=== PATIENT | female | born 1960 | race African-American/Black ===

== ENCOUNTER 2022-09-19 15:27 | Inpatient (IN) | payer MEDICARE, MEDICAID ==
[~2022-09-19] VITALS: Ht 165.1 cm; Wt 111.6 kg
[2022-09-19 17:10] LABS: EOSINOPHILS % 1.4 % (0.0-5.0); HEMATOCRIT. 39.7 % (36.0-48.0); HEMOGLOBIN. 13.1 g/dL (12.0-16.0); LYMPHOCYTES % 36.6 % (20.0-50.0); MEAN CORPUSCULAR HEMOGLOBIN 29.8 pg (28.0-32.0); MEAN CORPUSCULAR VOLUME 90.3 fL (81.0-99.0); MEAN PLATELET VOLUME 10.4 fl (7.4-10.4); MONOCYTES % 8.1 % (2.0-8.0); NEUTROPHILS % 52.9 % (40.0-76.0); PLATELET 185 x1000/uL (130-400); RED BLOOD CELL COUNT 4.39 mill/uL (4.2-5.4); RED CELL DISTRIBUTION WIDTH 14.8 % (11.6-14.6)
[2022-09-19 17:18] LABS: CHLORIDE 110 mEq/L (98-107)
[2022-09-19 17:32] LABS: ETHANOL BLOOD < 10 mg/dL
[2022-09-19] MEDS ORDERED: ASPIRIN 325MG EC TABLET PO ONE (18:00)
[2022-09-19 18:47] LABS: PARTIAL THROMBOPLASTIN TIME < 21.0 sec (23.4-31.0); PROTHROMBIN TIME 10.7 sec (9.6-11.0)
[2022-09-19 18:51] LABS: *AMPHETAMINES SCREEN URINE NEGATIVE (NEGATIVE); *BARBITURATES SCREEN URINE NEGATIVE (NEGATIVE); *BENZODIAZEPINES SCREEN URINE NEGATIVE (NEGATIVE); *COCAINE SCREEN URINE NEGATIVE (NEGATIVE); CANNABINOID URINE SCREEN NEGATIVE (NEGATIVE); METHADONE URINE SCREEN NEGATIVE (NEGATIVE); OPIATES URINE SCREEN NEGATIVE (NEGATIVE); PHENCYCLIDINE URINE SCREEN NEGATIVE (NEGATIVE)
[2022-09-19] MEDS ORDERED: IPRATROPIUM/ALBUTEROL 0.5-3(2.5)MG/3ML NEB HHN PRN (23:00)
[2022-09-19] MEDS ORDERED: GUAIFENESIN 200MG/10ML SUGAR FREE UDC PO PRN (23:00)
[2022-09-19] MEDS ORDERED: ONDANSETRON HCL 4MG/2ML INJ IV PRN (23:00)
[2022-09-19] MEDS ORDERED: MAGNESIUM/ALUMINUM HYDROXIDE/SIMETHICONE 30ML UDC PO PRN (23:00)
[2022-09-19] MEDS ORDERED: ACETAMINOPHEN 325MG TABLET PO PRN ×2 (23:00)
[2022-09-19] MEDS ORDERED: CLONIDINE 0.1MG TABLET PO PRN (23:00)
[2022-09-19] MEDS ORDERED: DOCUSATE SODIUM 100MG CAPSULE PO PRN (23:00)
[2022-09-19] MEDS ORDERED: IPRATROPIUM BROMIDE (0.02%) 0.5MG/2.5ML NEB HHN PRN (23:30)
[2022-09-19] MEDS ORDERED: ALBUTEROL (0.083%) 2.5MG/3ML NEB HHN PRN (23:30)
[2022-09-20 04:50] VITALS: BP 141/89
[2022-09-20 04:52] VITALS: BP 141/89
[2022-09-20 08:00] VITALS: BP 158/71
[2022-09-20] MEDS ORDERED: LIDOCAINE HCL 1% 10 MG/ML 10ML VIAL ONE (09:02)
[2022-09-20] MEDS ORDERED: IOHEXOL-350 100 ML BOTTLE ONE (09:59)
[2022-09-20 12:00] VITALS: BP 172/62
[2022-09-20] MEDS: ASPIRIN 81MG EC TABLET PO SCH (13:41)
[2022-09-20] MEDS: FUROSEMIDE 40MG/4ML VIAL IV SCH (13:41)
[2022-09-20] MEDS: AMLODIPINE 5MG TABLET PO SCH (13:41)
[2022-09-20] MEDS: CLOPIDOGREL 75MG TABLET PO SCH (13:41)
[2022-09-20] MEDS: ENOXAPARIN 30MG/0.3ML SYR SUBCUT SCH ×2 (14:25→22:19)
[2022-09-20] MEDS: FAMOTIDINE 20MG/2ML VIAL IV SCH (14:25)
[2022-09-20 16:00] VITALS: BP 143/94
[2022-09-20] MEDS ORDERED: DEXTROSE 50% WATER 50ML SYRINGE IV PRN (18:45)
[2022-09-20 20:00] VITALS: BP 125/84
[2022-09-20] MEDS: BLOOD SUGAR DIAGNOSTIC STRIP TEST SCH (21:00)
[2022-09-20] MEDS: INSULIN LISPRO 100 UNITS/ML SUBCUT SCH (21:00)
[2022-09-20 21:20] LABS: BASOPHILS % 0.8 % (0.0-2.0); EOSINOPHILS % 2.3 % (0.0-5.0); HEMOGLOBIN. 13.2 g/dL (12.0-16.0); LYMPHOCYTES % 30.5 % (20.0-50.0); MEAN CORPUSCULAR HEMOGLOBIN 30.3 pg (28.0-32.0); MEAN CORPUSCULAR VOLUME 89.8 fL (81.0-99.0); MEAN PLATELET VOLUME 9.9 fl (7.4-10.4); NEUTROPHILS % 57.4 % (40.0-76.0); PLATELET 184 x1000/uL (130-400); RED BLOOD CELL COUNT 4.34 mill/uL (4.2-5.4)
[2022-09-20 21:46] LABS: CHLORIDE 107 mEq/L (98-107)
[2022-09-20 22:00] LABS: HDL CHOLESTEROL 66 mg/dL (40-59); LDL CHOLESTEROL 106 mg/dL (5-100); T4 FREE 0.91 ng/dL (0.76-1.46)
[2022-09-20] MEDS: ATORVASTATIN CALCIUM 40MG TABLET PO SCH (22:19)
[2022-09-21] VITALS (8 sets, daily range): BP systolic 113–145; BP diastolic 38–89
[2022-09-21] MEDS: BLOOD SUGAR DIAGNOSTIC STRIP TEST SCH ×4 (06:08→20:37)
[2022-09-21] MEDS: INSULIN LISPRO 100 UNITS/ML SUBCUT SCH ×4 (06:35→20:41)
[2022-09-21] MEDS: CLOPIDOGREL 75MG TABLET PO SCH (07:56)
[2022-09-21] MEDS: ASPIRIN 81MG EC TABLET PO SCH (07:56)
[2022-09-21] MEDS: AMLODIPINE 5MG TABLET PO SCH (07:56)
[2022-09-21] MEDS: FUROSEMIDE 40MG/4ML VIAL IV SCH (07:56)
[2022-09-21] MEDS: ENOXAPARIN 30MG/0.3ML SYR SUBCUT SCH ×2 (07:57→20:51)
[2022-09-21] MEDS: FAMOTIDINE 20MG/2ML VIAL IV SCH (07:57)
[2022-09-21] MEDS ORDERED: SPIRONOLACTONE 25MG TABLET PO SCH (15:30)
[2022-09-21] MEDS ORDERED: LOSARTAN POTASSIUM 25 MG TABLET PO NR (15:30)
[2022-09-21] MEDS: ATORVASTATIN CALCIUM 40MG TABLET PO SCH (20:51)
[2022-09-21] MEDS ORDERED: ONDANSETRON HCL 4MG TABLET PO PRN (22:30)
[2022-09-22] MEDS ORDERED: FAMOTIDINE 20MG TABLET PO SCH (09:00)
[2022-09-22] MEDS ORDERED: FUROSEMIDE 40MG TABLET PO SCH (09:00)
== END 2022-09-21 23:25 | DRG 64 ==
LOC: ER 15:37 → MICUSO 19:42 → EDBEDREQ 19:48 → EDBEDREQTM 19:48 → 3WST 09-20 04:51 → 4WST 09-21 23:30 → 3WST 09-21 23:30
PROVIDERS: ADMIT Hospitalist; ATTEND Hospitalist
PROC: 02HV33Z Insertion of Infusion Device into Superior Vena Cava, Percutaneous Approach (ICD-10-PCS; 2022-09-20)
PROC: B5181ZA Fluoroscopy of Superior Vena Cava using Low Osmolar Contrast, Guidance (ICD-10-PCS; 2022-09-20)
PROC: B548ZZA Ultrasonography of Superior Vena Cava, Guidance (ICD-10-PCS; 2022-09-20)
PROC: 4A00X4Z Measurement of Central Nervous Electrical Activity, External Approach (ICD-10-PCS; principal; 2022-09-21)
DX: I63.9 Cerebral infarction, unspecified (principal); I50.23 Acute on chronic systolic (congestive) heart failure; Z68.41 Body mass index [BMI] 40.0-44.9, adult; I42.9 Cardiomyopathy, unspecified; I11.0 Hypertensive heart disease with heart failure; R29.701 NIHSS score 1; E11.9 Type 2 diabetes mellitus without complications; I27.20 Pulmonary hypertension, unspecified; R29.810 Facial weakness; Z87.891 Personal history of nicotine dependence; E66.01 Morbid (severe) obesity due to excess calories
CPT/HCPCS: 36415; 36573; 70496; 70498; 70551; 71045; 72141; 72146; 72148; 80053; 80061; 80305; 80320; 82962; 83036; 83880; 84439; 84443; 84484; 85025; 86850; 86900; 93005; 93306; 93970; 95816; 97162; 97166; 99291; C1725; J1650; J1940; J3490; Q9967; G0480

== ENCOUNTER 2022-09-21 23:30 | Inpatient (IN) | payer MEDICARE, MEDICAID ==
[~2022-09-21] VITALS: Ht 165.1 cm; Wt 110.7 kg
[2022-09-22] VITALS: BP 131/73
[2022-09-22] MEDS ORDERED: GUAIFENESIN 200MG/10ML SUGAR FREE UDC PO PRN (00:45)
[2022-09-22] MEDS ORDERED: DEXTROSE 50% WATER 50ML SYRINGE IV PRN (00:45)
[2022-09-22] MEDS ORDERED: CLONIDINE 0.1MG TABLET PO PRN (00:45)
[2022-09-22] MEDS ORDERED: ALBUTEROL (0.083%) 2.5MG/3ML NEB HHN PRN (00:45)
[2022-09-22] MEDS ORDERED: ONDANSETRON HCL 4MG TABLET PO PRN (00:45)
[2022-09-22] MEDS ORDERED: DOCUSATE SODIUM 100MG CAPSULE PO PRN (00:45)
[2022-09-22] MEDS ORDERED: ACETAMINOPHEN 325MG TABLET PO PRN ×2 (00:45)
[2022-09-22] MEDS ORDERED: IPRATROPIUM BROMIDE (0.02%) 0.5MG/2.5ML NEB HHN PRN (00:45)
[2022-09-22] MEDS ORDERED: MAGNESIUM/ALUMINUM HYDROXIDE/SIMETHICONE 30ML UDC PO PRN (00:45)
[2022-09-22] MEDS: BLOOD SUGAR DIAGNOSTIC STRIP TEST SCH ×3 (05:59→17:00)
[2022-09-22 06:21] LABS: BASOPHILS % 0.8 % (0.0-2.0); EOSINOPHILS % 3.6 % (0.0-5.0); HEMATOCRIT. 38.8 % (36.0-48.0); MEAN CORPUSCULAR HEMOGLOBIN 30.1 pg (28.0-32.0); MEAN CORPUSCULAR VOLUME 89.5 fL (81.0-99.0); MEAN PLATELET VOLUME 9.9 fl (7.4-10.4); MONOCYTES % 10.1 % (2.0-8.0); NEUTROPHILS % 45.5 % (40.0-76.0); PLATELET 176 x1000/uL (130-400); RED BLOOD CELL COUNT 4.33 mill/uL (4.2-5.4); RED CELL DISTRIBUTION WIDTH 14.5 % (11.6-14.6)
[2022-09-22 06:29] LABS: CHLORIDE 105 mEq/L (98-107)
[2022-09-22 08:00] VITALS: BP 113/83
[2022-09-22] MEDS: INSULIN LISPRO 100 UNITS/ML SUBCUT SCH ×3 (08:18→17:00)
[2022-09-22] MEDS ORDERED: CARVEDILOL 3.125 MG TABLET PO SCH (09:00)
[2022-09-22] MEDS ORDERED: LOSARTAN POTASSIUM 25 MG TABLET PO SCH (09:00)
[2022-09-22] MEDS ORDERED: ENOXAPARIN 30MG/0.3ML SYR SUBCUT SCH (09:00)
[2022-09-22] MEDS ORDERED: FAMOTIDINE 20MG TABLET PO SCH (09:00)
[2022-09-22] MEDS ORDERED: FUROSEMIDE 40MG TABLET PO SCH (09:00)
[2022-09-22] MEDS ORDERED: ASPIRIN 81MG EC TABLET PO SCH (09:00)
[2022-09-22] MEDS ORDERED: AMLODIPINE 5MG TABLET PO SCH (09:00)
[2022-09-22] MEDS ORDERED: CLOPIDOGREL 75MG TABLET PO SCH (09:00)
[2022-09-22] MEDS ORDERED: BISACODYL 5MG TABLET PO PRN (16:15)
[2022-09-22] MEDS ORDERED: ATORVASTATIN CALCIUM 40MG TABLET PO SCH (21:00)
[2022-09-22] MEDS ORDERED: LACTULOSE 20G/30ML UDC PO PRN (21:00)
== END 2022-09-22 18:45 | disposition left against medical advice (07) | DRG 64 ==
PROVIDERS: ADMIT Psychiatry & Neurology Neurology; ATTEND Hospitalist
DX: I63.9 Cerebral infarction, unspecified (principal); I50.43 Acute on chronic combined systolic (congestive) and diastolic (congestive) heart failure; Z68.41 Body mass index [BMI] 40.0-44.9, adult; I69.354 Hemiplegia and hemiparesis following cerebral infarction affecting left non-dominant side; E11.9 Type 2 diabetes mellitus without complications; E66.01 Morbid (severe) obesity due to excess calories; I11.0 Hypertensive heart disease with heart failure; R29.810 Facial weakness; R47.81 Slurred speech; R47.1 Dysarthria and anarthria; R20.0 Anesthesia of skin; Z53.29 Procedure and treatment not carried out because of patient's decision for other reasons; Z87.891 Personal history of nicotine dependence; Z91.81 History of falling; R26.9 Unspecified abnormalities of gait and mobility
CPT/HCPCS: 36415; 80053; 82962; 85025; 92523; 92610; 97162; 97166; 97535; J1650